=== PATIENT | female | born 1970 | race Caucasian/White ===

== ENCOUNTER 2018-03-02 02:04 | Emergency (ER) | payer OTHER ==
[~2018-03-02] VITALS: Ht 157.5 cm; Wt 59.1 kg
[~2018-03-02 02:04] MED LIST: ACET-784
[2018-03-02 02:37] VITALS: BP 161/97
== END 2018-03-02 04:00 | disposition home or self-care (01) ==
LOC: EMS 02:04
DX: J06.9 Acute upper respiratory infection, unspecified (principal); Z88.1 Allergy status to other antibiotic agents; Z88.5 Allergy status to narcotic agent
CPT/HCPCS: 99284